=== PATIENT | female | born 1950 | race Caucasian/White ===

== ENCOUNTER 2017-02-28 11:19 | Emergency (ER) | payer MEDICARE, OTHER ==
[~2017-02-28] VITALS: Ht 152.4 cm; Wt 62.5 kg
[2017-02-28] MEDS ORDERED: LATA2.5D2 OU (11:33)
[2017-02-28] MEDS ORDERED: MULT1TAB70 PO (11:33)
[2017-02-28] MEDS ORDERED: ACETAMINOPHEN/CODEINE 300-30 MG TABLET PO ONE (14:15)
[2017-02-28 14:27] VITALS: BP 110/70
== END 2017-02-28 14:32 | disposition home or self-care (01) ==
LOC: EMS 11:22
DX: S20.211A Contusion of right front wall of thorax, initial encounter (principal); E78.00 Pure hypercholesterolemia, unspecified; I10 Essential (primary) hypertension; I95.9 Hypotension, unspecified; W19.XXXA Unspecified fall, initial encounter; Y93.89 Activity, other specified; Y92.89 Other specified places as the place of occurrence of the external cause; Y99.8 Other external cause status
CPT/HCPCS: 71020; 99284